=== PATIENT | male | born 1955 ===

== ENCOUNTER 2018-09-23 16:55 | Emergency (ER) | payer MEDICARE, MEDICAID ==
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
--- NOTE | 2018-09-23 17:41 | CR ---
INDICATION: Right-sided pain TECHNIQUE: Chest 1 view. COMPARISON: None FINDINGS: Cardiovascular and mediastinum: Heart size and vasculature are normal in caliber and appearance. Mediastinum is within normal limits. Lungs and pleural space: Hyperinflation. Lungs are clear. No sign of infiltrate or mass. No sign of pleural effusion. No pneumothorax. Bones and soft tissues: No significant findings. IMPRESSION: No findings to explain the patient`s right-sided pain. Hyperinflation. Dictated by Flynn Woo MD @ 09/23/2018 5:40:11 PM Dictated by: Flynn Woo MD @ 09/23/2018 17:40:17 (Electronically Signed)
== END 2018-09-23 17:58 ==
LOC: MW.ED 16:55
DX: R07.89 Other chest pain (principal); F17.210 Nicotine dependence, cigarettes, uncomplicated
CPT/HCPCS: 71045; 71045-26; 99285-25

== ENCOUNTER 2020-08-28 12:59 | Emergency (ER) | payer MEDICARE, MEDICAID ==
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
== END 2020-08-28 13:27 | disposition home or self-care (01) ==
LOC: MW.ED 12:59
DX: Z02.9 Encounter for administrative examinations, unspecified (principal); R10.9 Unspecified abdominal pain
CPT/HCPCS: 82947; 99283